=== PATIENT | female | born 2000 | race African-American/Black ===

== ENCOUNTER 2023-06-20 23:42 | Emergency (ER) | payer MEDICAID, OTHER ==
[~2023-06-20] VITALS: Ht 170.2 cm; Wt 119.1 kg
[2023-06-21 00:07] VITALS: BP 165/109; PULSE 100; RESP 20; TEMP 98.5; O2SAT 100
[2023-06-21] MEDS ORDERED: LIDOCAINE 5% PATCH TOP SCH (02:30)
[2023-06-21] MEDS ORDERED: KETOROLAC 60MG/2ML VIAL IM ONE (02:30)
== END 2023-06-21 02:35 | disposition left against medical advice (07) ==
LOC: ER 06-21 00:36
DX: S13.4XXA Sprain of ligaments of cervical spine, initial encounter (principal); M54.2 Cervicalgia; R51.9 Headache, unspecified; I10 Essential (primary) hypertension; Z53.21 Procedure and treatment not carried out due to patient leaving prior to being seen by health care provider; Z00.00 Encounter for general adult medical examination without abnormal findings; V43.62XA Car passenger injured in collision with other type car in traffic accident, initial encounter; Y93.89 Activity, other specified; Y92.89 Other specified places as the place of occurrence of the external cause; Y99.8 Other external cause status
CPT/HCPCS: 99281